=== PATIENT | male | born 2005 | race Two or more races ===

== ENCOUNTER 2024-01-01 00:30 | Inpatient (IN) | payer OTHER ==
[~2024-01-01] VITALS: Ht 170.2 cm; Wt 66.7 kg
[2024-01-01] MEDS ORDERED: MAGNESIUM HYDROXIDE SUSPENSION 30 ML UDCUP PO PRN (02:30)
[2024-01-01 03:10] LABS: BASOPHILS % (AUTO) 0.7 % (0.0-2.0); EOSINOPHILS % (AUTO) 1.7 % (1.0-6.0); HEMATOCRIT 45.5 % (41-53); HEMOGLOBIN 15.5 g/dL (13.5-17.5); LYMPHOCYTES # (AUTO) 2.9 K/uL (1.0-4.8); LYMPHOCYTES % (AUTO) 35.8 % (22.0-44.0); MEAN CORPUSCULAR HEMOGLOBIN 30.9 pg (26.0-34.0); MEAN CORPUSCULAR HGB CONC 34.1 G/dL (31.0-37.0); MEAN CORPUSCULAR VOLUME 91 fL (80-100); MONOCYTES # (AUTO) 0.4 K/uL (0.1-1.0); MONOCYTES % (AUTO) 4.7 % (2.0-9.0); NEUTROPHILS # (AUTO) 4.7 K/uL (1.8-7.7); NEUTROPHILS % (AUTO) 57.1 % (40.0-70.0); PLATELET COUNT (AUTO) 209 K/uL (150-450); RED BLOOD CELL COUNT(AUTO) 5.03 MIL/uL (4.50-5.90); RED CELL DISTRIBUTION WIDTH 12.9 % (11.5-14.5); WHITE BLOOD COUNT (AUTO) 8.2 K/uL (4.5-11.0)
[2024-01-01 03:22] LABS: ALCOHOL, BLOOD (SERUM) < 3 mg/dL (0-10)
[2024-01-01 03:28] LABS: ANION GAP 8 mmol/L (8-16); CALCIUM, TOTAL 8.8 mg/dL (8.8-10.5); CARBON DIOXIDE 29 mmol/L (22-29); CHLORIDE 104 mmol/L (98-107); CREATININE 0.88 mg/dL (0.60-1.30); GLOMERULAR FILTR. RATE CALC > 60 mL/min (>60); GLUCOSE,RANDOM 133 mg/dL (70-110); POTASSIUM 3.9 mmol/L (3.5-5.1); SODIUM SERUM 141 mmol/L (136-145); UREA NITROGEN, BLOOD 13 mg/dL (7-18)
[2024-01-01 05:27] VITALS: BP 111/66; PULSE 50; RESP 18; TEMP 97.8; O2SAT 100
[2024-01-01] MEDS: FAMOTIDINE 20 MG TABLET PO SCH (08:45)
[2024-01-01] MEDS: ACETAMINOPHEN 325 MG TABLET PO PRN (08:46)
[2024-01-01 08:59] VITALS: BP_SYST 103; BP_SYST 97; BP_DIAS 43; BP_DIAS 63; PULSE 50; PULSE 51; RESP 18; TEMP 97.4; TEMP 97.8; O2SAT 97; O2SAT 98
[2024-01-01 15:30] LABS: APPEARANCE,URINE CLEAR (CLEAR); BILIRUBIN,URINE NEGATIVE (NEGATIVE); COLOR,URINE LIGHT YELLOW (YELLOW); GLUCOSE, URINE (UA) NEGATIVE (NEGATIVE); KETONES,URINE NEGATIVE (NEGATIVE); LEUKOCYTE ESTERASE ,URINE NEGATIVE (NEGATIVE); NITRATE,URINE NEGATIVE (NEGATIVE); OCCULT BLOOD,URINE NEGATIVE (NEGATIVE); PROTEIN,URINE NEGATIVE (NEGATIVE); SPECIFIC GRAVITIY, URINE 1.018 (1.003-1.030); UROBILINOGEN,URINE <=1.0 mg/dL (<=1.0)
[2024-01-01 15:38] LABS: ALCOHOL, URINE DRUG SCREEN NEGATIVE (NEGATIVE); AMPHET/METH SCREEN,URINE NEGATIVE (NEGATIVE); BARBITURATE SCREEN, URINE NEGATIVE (NEGATIVE); BENZODIAZEPINES SCREEN,URINE NEGATIVE (NEGATIVE); CANNABINOID SCREEN,URINE NEGATIVE (NEGATIVE); COCAINE SCREEN,URINE NEGATIVE (NEGATIVE); METHADONE SCREEN, URINE NEGATIVE (NEGATIVE); OPIATE SCREEN,URINE NEGATIVE (NEGATIVE); PHENCYCLIDINE SCREEN,URINE NEGATIVE (NEGATIVE)
[2024-01-01 20:00] VITALS: BP 100/50; PULSE 60; RESP 18; TEMP 97.5; TEMP 99; O2SAT 98
[2024-01-01] MEDS: ZOLPIDEM TARTRATE 5 MG TABLET PO PRN (20:06)
[2024-01-02 04:42] VITALS: BP 99/47; PULSE 61; RESP 18; TEMP 97; O2SAT 100
[2024-01-02] MEDS ORDERED: MIRT-89 PO (13:56)
[2024-01-02] MEDS ORDERED: CITA-144 PO (13:57)
[2024-01-02 19:30] VITALS: BP 111/62; PULSE 68; RESP 18; TEMP 98; O2SAT 98
== END 2024-01-02 20:00 | DRG 885 ==
LOC: EMS 00:30 → EDH 04:28 → 6S 05:18 → 6N 01-02 05:02
PROVIDERS: ADMIT Internal Medicine; ATTEND Internal Medicine
PROC: GZ56ZZZ Individual Psychotherapy, Supportive (ICD-10-PCS; principal; 2024-01-02)
DX: F33.1 Major depressive disorder, recurrent, moderate (principal); F25.9 Schizoaffective disorder, unspecified
CPT/HCPCS: 80048; 80307; 81003; 85025; 99285; G0480

== ENCOUNTER 2024-02-07 05:02 | Emergency (ER) | payer OTHER ==
[~2024-02-07 05:02] MED LIST: CITA-144 PO; MIRT-89 PO
== END 2024-02-07 05:08 | disposition left against medical advice (07) ==
LOC: EMS 05:08 → MERGE 05:08
DX: Z53.21 Procedure and treatment not carried out due to patient leaving prior to being seen by health care provider (principal)

== ENCOUNTER 2024-02-07 05:27 | Inpatient (IN) | payer OTHER ==
[~2024-02-07] VITALS: Ht 175.3 cm; Wt 65.0 kg
[2024-02-07 06:04] LABS: COVID AG,FIA SOURCE NASAL SWAB
[2024-02-07 06:11] LABS: BASOPHILS % (AUTO) 0.9 % (0.0-2.0); EOSINOPHILS % (AUTO) 1.1 % (1.0-6.0); HEMATOCRIT 44.3 % (41-53); HEMOGLOBIN 15.3 g/dL (13.5-17.5); LYMPHOCYTES # (AUTO) 2.2 K/uL (1.0-4.8); LYMPHOCYTES % (AUTO) 31.1 % (22.0-44.0); MEAN CORPUSCULAR HEMOGLOBIN 31.2 pg (26.0-34.0); MEAN CORPUSCULAR HGB CONC 34.4 G/dL (31.0-37.0); MEAN CORPUSCULAR VOLUME 91 fL (80-100); MONOCYTES # (AUTO) 0.7 K/uL (0.1-1.0); MONOCYTES % (AUTO) 10.5 % (2.0-9.0); NEUTROPHILS # (AUTO) 3.9 K/uL (1.8-7.7); NEUTROPHILS % (AUTO) 56.4 % (40.0-70.0); PLATELET COUNT (AUTO) 246 K/uL (150-450); RED CELL DISTRIBUTION WIDTH 13.7 % (11.5-14.5); WHITE BLOOD COUNT (AUTO) 6.9 K/uL (4.5-11.0)
[2024-02-07 06:17] LABS: ANION GAP 5 mmol/L (8-16); CALCIUM, TOTAL 9.4 mg/dL (8.8-10.5); CARBON DIOXIDE 29 mmol/L (22-29); CHLORIDE 101 mmol/L (98-107); CREATININE 1.05 mg/dL (0.60-1.30); GLOMERULAR FILTR. RATE CALC > 60 mL/min (>60); GLUCOSE,RANDOM 81 mg/dL (70-110); POTASSIUM 4.1 mmol/L (3.5-5.1); SODIUM SERUM 135 mmol/L (136-145); UREA NITROGEN, BLOOD 16 mg/dL (7-18)
[2024-02-07 06:25] LABS: SARS-COV2 (COVID) ANTIGEN,FIA Negative (Negative)
[2024-02-07] MEDS ORDERED: MAGNESIUM HYDROXIDE SUSPENSION 30 ML UDCUP PO PRN (07:45)
[2024-02-07] MEDS: HALOPERIDOL 5 MG TABLET PO PRN (13:41)
[2024-02-07] MEDS: ACETAMINOPHEN 325 MG TABLET PO PRN (13:41)
[2024-02-07] MEDS: LORazepam 2 MG TABLET PO PRN (13:41)
[2024-02-07 16:00] VITALS: BP 130/77; PULSE 71; RESP 16; TEMP 97.8; O2SAT 98
[2024-02-07 20:27] VITALS: BP 95/63; PULSE 97; RESP 17; TEMP 97.5; O2SAT 99
[2024-02-08 00:26] VITALS: BP 110/60; PULSE 65; RESP 18; TEMP 98; O2SAT 99
[2024-02-08 08:17] VITALS: BP 105/68; PULSE 99; RESP 19; TEMP 97.5; O2SAT 97
[2024-02-08 19:48] VITALS: BP 113/66; PULSE 76; RESP 20; TEMP 98.2; O2SAT 96
[2024-02-08] MEDS: RisperiDONE 1 MG TABLET PO SCH (20:53)
[2024-02-08] MEDS: MIRTAZAPINE 15 MG TABLET PO SCH (20:53)
[2024-02-09 05:49] VITALS: BP 116/73; PULSE 95; RESP 18; TEMP 97.5; O2SAT 98
[2024-02-09] MEDS: CITALOPRAM HYDROBROMIDE 20 MG TABLET PO SCH (08:01)
[2024-02-09 08:47] VITALS: BP 114/62; PULSE 98; RESP 20; O2SAT 98
[2024-02-09 19:59] VITALS: BP 116/70; PULSE 93; RESP 18; TEMP 98.2; O2SAT 96
[2024-02-10 04:26] VITALS: BP 126/70; PULSE 62; RESP 18; TEMP 97.8; O2SAT 99
[2024-02-10 08:19] VITALS: BP 122/79; PULSE 64; RESP 18; TEMP 97.6; O2SAT 99
[2024-02-10 08:36] LABS: APPEARANCE,URINE CLEAR (CLEAR); BILIRUBIN,URINE NEGATIVE (NEGATIVE); COLOR,URINE LIGHT YELLOW (YELLOW); GLUCOSE, URINE (UA) NEGATIVE (NEGATIVE); KETONES,URINE NEGATIVE (NEGATIVE); LEUKOCYTE ESTERASE ,URINE NEGATIVE (NEGATIVE); NITRATE,URINE NEGATIVE (NEGATIVE); OCCULT BLOOD,URINE NEGATIVE (NEGATIVE); PH,URINE 6.5 (5.0-8.0); PH,URINE DRUG SCREEN 6.5 (5.0-8.0); PROTEIN,URINE NEGATIVE (NEGATIVE); SPECIFIC GRAVITIY, URINE 1.023 (1.003-1.030); UROBILINOGEN,URINE <=1.0 mg/dL (<=1.0)
[2024-02-10 08:51] LABS: ALCOHOL, URINE DRUG SCREEN NEGATIVE (NEGATIVE); AMPHET/METH SCREEN,URINE NEGATIVE (NEGATIVE); BARBITURATE SCREEN, URINE NEGATIVE (NEGATIVE); BENZODIAZEPINES SCREEN,URINE NEGATIVE (NEGATIVE); CANNABINOID SCREEN,URINE NEGATIVE (NEGATIVE); COCAINE SCREEN,URINE NEGATIVE (NEGATIVE); METHADONE SCREEN, URINE NEGATIVE (NEGATIVE); OPIATE SCREEN,URINE NEGATIVE (NEGATIVE); PHENCYCLIDINE SCREEN,URINE NEGATIVE (NEGATIVE)
[2024-02-10 09:04] LABS: BACTERIA,URINE None Seen /HPF (None Seen); RBC,URINE None Seen /HPF (0-2); SQUAMOUS EPITHELIAL CELL,UR Few /LPF (None Seen); WBC,URINE None Seen /HPF (0-5)
[2024-02-10] MEDS ORDERED: RISP-31 PO (11:01)
== END 2024-02-10 12:00 | DRG 885 ==
LOC: EMS 05:27 → EDH 07:32 → 5S 15:00 → 6N 02-08 00:23
PROVIDERS: ADMIT Internal Medicine; ATTEND Internal Medicine
PROC: GZ52ZZZ Individual Psychotherapy, Cognitive (ICD-10-PCS; principal; 2024-02-08)
PROC: GZ56ZZZ Individual Psychotherapy, Supportive (ICD-10-PCS; 2024-02-08)
DX: F25.1 Schizoaffective disorder, depressive type (principal); Z20.822 Contact with and (suspected) exposure to COVID-19; I10 Essential (primary) hypertension; Z79.899 Other long term (current) drug therapy
CPT/HCPCS: 80048; 80307; 81001; 85025; 99285

== ENCOUNTER 2024-03-04 23:50 | Inpatient (IN) | payer OTHER ==
[~2024-03-04] VITALS: Ht 170.2 cm; Wt 63.0 kg
[~2024-03-04 23:50] MED LIST changes: +RISP-31 PO
[2024-03-05] MEDS ORDERED: ACETAMINOPHEN 325 MG TABLET PO PRN (01:00)
[2024-03-05] MEDS ORDERED: ONDANSETRON HCL 4 MG/2 ML VIAL IVP PRN (01:00)
[2024-03-05 01:17] LABS: BASOPHILS % (AUTO) 0.8 % (0.0-2.0); EOSINOPHILS % (AUTO) 1.1 % (1.0-6.0); HEMATOCRIT 42.7 % (41-53); HEMOGLOBIN 14.8 g/dL (13.5-17.5); LYMPHOCYTES # (AUTO) 2.1 K/uL (1.0-4.8); LYMPHOCYTES % (AUTO) 33.4 % (22.0-44.0); MEAN CORPUSCULAR HEMOGLOBIN 31.2 pg (26.0-34.0); MEAN CORPUSCULAR HGB CONC 34.8 G/dL (31.0-37.0); MEAN CORPUSCULAR VOLUME 90 fL (80-100); MONOCYTES # (AUTO) 0.4 K/uL (0.1-1.0); NEUTROPHILS # (AUTO) 3.6 K/uL (1.8-7.7); NEUTROPHILS % (AUTO) 57.7 % (40.0-70.0); PLATELET COUNT (AUTO) 199 K/uL (150-450); RED BLOOD CELL COUNT(AUTO) 4.77 MIL/uL (4.50-5.90); RED CELL DISTRIBUTION WIDTH 12.9 % (11.5-14.5); WHITE BLOOD COUNT (AUTO) 6.3 K/uL (4.5-11.0)
[2024-03-05 01:31] LABS: ANION GAP 9 mmol/L (8-16); CALCIUM, TOTAL 8.8 mg/dL (8.8-10.5); CARBON DIOXIDE 29 mmol/L (22-29); CHLORIDE 101 mmol/L (98-107); CREATININE 0.96 mg/dL (0.60-1.30); GLOMERULAR FILTR. RATE CALC > 60 mL/min (>60); GLUCOSE,RANDOM 87 mg/dL (70-110); POTASSIUM 4.1 mmol/L (3.5-5.1); SODIUM SERUM 139 mmol/L (136-145); UREA NITROGEN, BLOOD 16 mg/dL (7-18)
[2024-03-05 01:36] LABS: ALCOHOL, BLOOD (SERUM) < 3 mg/dL (0-10)
[2024-03-05 02:32] LABS: ALANINE AMINOTRANSFERASE 35 U/L (12-78); ALBUMIN 4.4 g/dL (3.4-5.0); ALKALINE PHOSPHATASE 111 U/L (46-116); ASPARTATE AMINOTRANSFERASE 22 U/L (15-37); BILIRUBIN,TOTAL 0.5 mg/dL (0.1-1.0); THYROID STIMULATING HORMONE 3.13 uIU/mL (0.36-3.74); TOTAL PROTEIN, SERUM 7.6 g/dL (6.4-8.2)
[2024-03-05 05:05] VITALS: BP 129/88; PULSE 67; RESP 20; TEMP 97.7; O2SAT 98
[2024-03-05] MEDS ORDERED: INFLUENZA VIRUS VACCINE TVS (6MO+) 2024-25/PF 45 MCG/0.5 ML SYRINGE IM. ONE (06:00)
[2024-03-05] MEDS: DOCUSATE SODIUM 100 MG CAPSULE PO SCH (08:17)
[2024-03-05] MEDS: HEPARIN SODIUM,PORCINE 5,000 UNITS/ML VIAL SQ SCH (08:17)
[2024-03-05 08:29] VITALS: BP 107/63; PULSE 74; RESP 20; TEMP 98.7; O2SAT 98
[2024-03-05] MEDS: RisperiDONE 2 MG TABLET PO SCH (14:58)
[2024-03-05 20:17] VITALS: BP 111/67; PULSE 87; RESP 18; TEMP 98; O2SAT 96
[2024-03-05] MEDS: RisperiDONE 4 MG TABLET PO SCH (20:19)
[2024-03-05] MEDS: MIRTAZAPINE 15 MG TABLET PO SCH (20:19)
[2024-03-05 21:40] LABS: APPEARANCE,URINE CLEAR (CLEAR); BILIRUBIN,URINE NEGATIVE (NEGATIVE); COLOR,URINE YELLOW (YELLOW); GLUCOSE, URINE (UA) NEGATIVE (NEGATIVE); KETONES,URINE NEGATIVE (NEGATIVE); LEUKOCYTE ESTERASE ,URINE NEGATIVE (NEGATIVE); NITRATE,URINE NEGATIVE (NEGATIVE); OCCULT BLOOD,URINE NEGATIVE (NEGATIVE); PH,URINE 6.5 (5.0-8.0); PH,URINE DRUG SCREEN 6.5 (5.0-8.0); PROTEIN,URINE NEGATIVE (NEGATIVE); SPECIFIC GRAVITIY, URINE 1.025 (1.003-1.030); UROBILINOGEN,URINE <=1.0 mg/dL (<=1.0)
[2024-03-05 21:48] LABS: ALCOHOL, URINE DRUG SCREEN NEGATIVE (NEGATIVE); AMPHET/METH SCREEN,URINE NEGATIVE (NEGATIVE); BARBITURATE SCREEN, URINE NEGATIVE (NEGATIVE); BENZODIAZEPINES SCREEN,URINE NEGATIVE (NEGATIVE); CANNABINOID SCREEN,URINE NEGATIVE (NEGATIVE); COCAINE SCREEN,URINE NEGATIVE (NEGATIVE); METHADONE SCREEN, URINE NEGATIVE (NEGATIVE); OPIATE SCREEN,URINE NEGATIVE (NEGATIVE); PHENCYCLIDINE SCREEN,URINE NEGATIVE (NEGATIVE)
[2024-03-05 22:01] LABS: GLUCOMETER DEV NAME(LOC) 6N.2B; GLUCOSE,POINT OF CARE 92 MG/DL (70-110)
[2024-03-06 05:07] LABS: HEPATITIS C AB (EIA) Non Reactive (Non Reactive)
[2024-03-06 05:14] VITALS: BP 107/63; PULSE 55; RESP 12; TEMP 97.6; O2SAT 97
[2024-03-06 09:19] VITALS: BP 100/55; PULSE 65; RESP 17; TEMP 97.7; O2SAT 95
[2024-03-06] MEDS ORDERED: RISP4TAB94 PO (17:45)
[2024-03-06] MEDS ORDERED: RISP-32 PO (17:47)
[2024-03-06 19:59] VITALS: BP 118/71; PULSE 87; RESP 18; TEMP 98.1; O2SAT 98
== END 2024-03-06 21:00 | DRG 885 ==
LOC: EMS 23:50 → EDH 03-05 04:12 → 6N 03-05 05:03
PROVIDERS: ADMIT Internal Medicine; ATTEND Internal Medicine
PROC: GZ52ZZZ Individual Psychotherapy, Cognitive (ICD-10-PCS; principal; 2024-03-06)
PROC: GZ56ZZZ Individual Psychotherapy, Supportive (ICD-10-PCS; 2024-03-06)
DX: F25.1 Schizoaffective disorder, depressive type (principal); R45.851 Suicidal ideations; I10 Essential (primary) hypertension; Z20.822 Contact with and (suspected) exposure to COVID-19
CPT/HCPCS: 80048; 80076; 80307; 81003; 82962; 84443; 85025; 86803; 87081; 87340; 99285; G0480; J1644